=== PATIENT | female | born 2005 | race Caucasian/White ===

== ENCOUNTER → 2025-02-26 | Outpatient (CLI) | payer MEDICAID, SELFPAY ==
--- NOTE | 2025-02-26 14:00 | XR_ITS ---
Examination: Pelvic ultrasound, transabdominal, complete Technique: Transabdominal ultrasound of the pelvis performed using grayscale imaging Date and time of exam: February 26, 2025, 1423 hours INDICATIONS: Dysmenorrhea 7 years FINDINGS: Uterus 7.9 cm endometrial stripe 0.3 cm No uterine mass or intrauterine gestation Right ovary 3.4 cm arterial flow Left ovary 3.5 cm arterial flow IMPRESSION: Negative study
== END | disposition home or self-care (01) ==
LOC: CDIM 13:49
PROVIDERS: PCP Internal Medicine; Referring Provider Internal Medicine; Visit Provider Internal Medicine
DX: N94.6 Dysmenorrhea, unspecified (principal)
CPT/HCPCS: 76856